=== PATIENT | female | born 1980 | race Asian ===

== ENCOUNTER 2021-11-04 11:03 | Emergency (ER) | payer OTHER ==
[~2021-11-04] VITALS: Ht 157.5 cm; Wt 63.5 kg
[2021-11-04 12:20] LABS: BILIRUBIN,URINE NEGATIVE (NEG); CLARITY,URINE CLEAR; COLOR,URINE YELLOW
[2021-11-04 12:21] LABS: BACTERIA,URINE FEW /HPF (0-FEW); NITRITE,URINE NEGATIVE (NEG); PH,URINE 6.5 (<5.0-8.0); PROTEIN,URINE NEGATIVE (NEG-TRACE); UROBILINOGEN,URINE 0.2 mg/dL (0.2 mg/dL)
[2021-11-04] MEDS ORDERED: KETOROLAC TROMETHAMINE 10 MG TABLET PO PRN (14:30)
--- NOTE | 2021-11-04 14:36 | PHYS DOC ---
Past Medical History Past Medical History: No Pertinent History Past Surgical History: No Surgical History Smoking Status: Never Smoker Alcohol Use: None General Adult EDM: Chief Complaint: ABDOMINAL PAIN HPI: HPI: Patient is a 41 year old female who presents with low abdominal pain that began this morning. She rates her pain 10/10 nonradiating. Patient states that she started her menstrual period yesterday for the first time in over 1 year. She is breast-feeding a child that is about a year and a half old, but is concerned she may be . Patient denies vaginal pain, dyspareunia, vaginal discharge or irritation, hematuria, dysuria, NVD. Review of Systems: Review of Systems: ROS negative or noncontributory except as mentioned in HPI. Heart Score: C/O Chest Pain: No Current Medications: Current Medications Medications (Trade) Dose Ordered Sig/Phan Start Time Stop Time Status Last Admin Dose Admin Ketorolac Tromethamine (Toradol) 20 mg 1X PRN 11/04/21 14:30 11/09/21 14:29 11/04/21 14:22 20 MG Allergies: Allergies: Allergies Coded Allergies Type Severity Reaction Last Updated Verified No Known Drug Allergies 11/04/21 No Physical Exam: PE: Constitutional: Well developed, well nourished, no acute distress, non-toxic appearance. HENT: Normocephalic, atraumatic, bilateral external ears normal, nose normal. Eyes: EOMI, conjunctiva normal, no discharge. Neck: Normal range of motion, no stridor. Abdomen: Soft, suprapubic tenderness without rebound or guarding, no adnexal masses, no pulsatile masses. Skin: Warm, dry, no erythema, no rash. Back: No tenderness, no CVA tenderness. Extremities: No tenderness, no cyanosis, no clubbing, ROM intact, no edema. Neurologic: Alert and oriented x4, steady and symmetrical upright gait, no focal deficits noted. Current Patient Data: Labs: Laboratory Tests Test 11/04/21 11:37 11/04/21 11:49 Urine Collection Type Void Urine Color Yellow Urine Clarity Clear Urine pH 6.5 (<5.0-8.0) Urine Specific [place] 1.025 (1.000-1.030) Urine Protein Negative mg/dL (NEG-TRACE) Urine Glucose (UA) Negative mg/dL (NEG) Urine Ketones (Stick) Negative mg/dL (NEG) Urine Blood Large (NEG) Urine Nitrite Negative (NEG) Urine Bilirubin Negative (NEG) Urine Urobilinogen Dipstick 0.2 mg/dL (0.2 mg/dL) Urine Leukocyte Esterase Negative (NEG) Urine RBC 3-5 /HPF (0-2) Urine WBC 1-4 /HPF (0-4) Urine Squamous Epithelial Cells Mod /LPF Urine Bacteria Few /HPF (0-FEW) Urine Mucus Mod /LPF POC Urine HCG, Qualitative Hcg negative (Negative) Vital Signs: Vital Signs Date Time Temp Pulse Resp B/P (MAP) Pulse Ox O2 Delivery O2 Flow Rate FiO2 11/04/21 14:09 98.3 75 16 120/84 (96) 99 Room Air 98.3 11/04/21 13:10 98.3 76 16 118/93 (101) 100 Room Air 98.3 11/04/21 11:22 98.3 79 18 133/89 (104) 98 Room Air 98.3 Course & Med Decision Making: Course & Med Decision Making Pertinent Labs and Imaging studies reviewed. (See chart for details) Patient is a 41-year-old female who presents with suprapubic pain after starting her menstrual period yesterday for the first time in over a year and concern for . Work-up today will include urinalysis and urine test. Urine test negative, urinalysis does not show evidence of infection. Patient treated with p.o. Toradol here in the department, as it is shown to be nonharmful to infants via breastmilk. Patient's pain does not seem to be much improved after medication. Had a discussion with the patient about administering stronger analgesics, however she would be unable to breast-feed while taking these medications. Patient feels it is best to avoid these medications and only take what is safe for baby. Advised patient on nonpharmacologic supportive treatment measures for suprapubic pain and women. Return precautions were provided. Patient should follow-up with her regular doctor. Patient understands and is agreeable to discharge plan. Dragon Disclaimer: Sosa Disclaimer: This electronic medical record was generated, in whole or in part, using a voice recognition dictation system. Departure Departure Impression: Primary Impression: Suprapubic abdominal pain Additional Impression: Irregular menstrual cycle Disposition: HOME / SELF CARE / HOMELESS Condition: IMPROVED Referrals: NO PCP (PCP) Patient Instructions: Abdominal Pain, Women Additional Instructions: EMERGENCY DEPARTMENT GENERAL DISCHARGE INSTRUCTIONS Thank you for coming to [facility] Emergency Department (ED) today and trusting us with you care. We trust that you had a positive experience in our Emergency Department. If you wish to speak to the department management, you may call the director at . YOUR FOLLOW UP INSTRUCTIONS ARE FOLLOWS: 1. Follow up with your primary care doctor. If you do not have a primary doctor, please ask for a resource list of physicians or clinics that may be able to assist you with follow up care. 2. The emergency provider has interpreted your imaging studies, if any were ordered. The radiology coding compliance specialist also reviewed them. If there is a change in the findings, you will be notified in 48 hours when at all possible. 3. If a lab test or culture has been done, your results will be reviewed and you will be notified if you need a change in treatment. 4. Follow instructions verbalized to you and refer to the printouts if needed. ADDITIONAL INSTRUCTIONS AND INFORMATION: 1. Your care today has been supervised by a physician who is specially trained in emergency care. Many problems require more than one evaluation for a complete diagnosis and treatment. We recommend that you schedule your follow up appointment as recommended to ensure complete treatment of you illness or injury. If you are unable to obtain follow up care and continue to have a problem, or if your condition worsens, we recommend that you return to the ED. 2. We are not able to safely determine your condition over the phone nor are we able to give sound medical advice over the phone. For these safety reasons, if you call for medical advice we will ask you to come to the ED for further evaluation. 3. If you have any questions regarding these discharge instructions please call the ED at . SAFETY INFORMATION: In the interest of safety, wellness, and injury prevention; we encourage you to wear your seat belt, if you smoke; quite smoking, and we encourage family to use a protective helmet for bicycling and other sporting events that present an increased risk for head injury. IF YOUR SYMPTOMS WORSEN OR NEW SYMPTOMS DEVELOP, OR YOU HAVE CONCERNS ABOUT YOUR CONDITION; OR IF YOUR CONDITION WORSENS WHILE YOU ARE WAITING FOR YOUR FOLLOW UP APPOINTMENT; EITHER CONTACT YOUR PRIMARY CARE DOCTOR, THE PHYSICIAN WHOSE NAME AND NUMBER YOU WERE GIVEN, OR RETURN TO THE ED IMMEDIATELY. Scripts Acetaminophen (ACETAMINOPHEN) 500 Mg Tablet 1 TAB PO PRN Q4-6HRS PRN for pain or fever, #24 TAB 0 Refills Prov: MARISSA RUSSELL 11/04/21 MARISSA RUSSELL Nov 04, 2021 14:36
[2021-11-04] MEDS ORDERED: ACET500T68 PO (15:21)
[2021-11-04 15:32] VITALS: BP 118/82
== END 2021-11-04 15:38 | disposition home or self-care (01) ==
LOC: ER 11:03
DX: R10.30 Lower abdominal pain, unspecified (principal); N92.6 Irregular menstruation, unspecified
CPT/HCPCS: 81001; 81025; 99283